=== PATIENT | male | born 1995 | race Caucasian/White ===

== ENCOUNTER 2016-05-01 02:06 | Emergency (ER) | payer OTHER ==
[~2016-05-01] VITALS: Ht 165.1 cm; Wt 68.0 kg
[~2016-05-01 02:06] MED LIST: ASPIR-LOW81 MG PO; COLCRYS0.6 MG PO; MOTRIN IB200 MG PO; NAPROSYN500 MG PO; NOHOMEMEDS
[2016-05-01] MEDS ORDERED: PERCOCET 5/31 TABLET PO (02:48)
[2016-05-01 02:54] VITALS: BP 142/82
== END 2016-05-01 02:55 | disposition home or self-care (01) ==
LOC: EME 02:06
DX: S20.212A Contusion of left front wall of thorax, initial encounter (principal); W18.30XA Fall on same level, unspecified, initial encounter; Y93.51 Activity, roller skating (inline) and skateboarding
CPT/HCPCS: 71101; 99281; 99283

== ENCOUNTER 2016-08-30 18:27 | Emergency (ER) | payer OTHER ==
[~2016-08-30] VITALS: Ht 165.1 cm; Wt 65.9 kg
[~2016-08-30 18:27] MED LIST changes: +PERCOCET 5/31 TABLET PO
[2016-08-30] MEDS ORDERED: NAPROSYN500 MG PO (20:15)
[2016-08-30] MEDS ORDERED: TRAMADOL HCL50 MG PO (20:20)
[2016-08-30 20:41] VITALS: BP 130/87
== END 2016-08-30 20:42 | disposition home or self-care (01) ==
LOC: EME 18:27
PROC: 2W3MX1Z Immobilization of Left Lower Extremity using Splint (ICD-10-PCS; principal; 2016-08-30)
DX: S83.92XA Sprain of unspecified site of left knee, initial encounter (principal); X50.0XXA Overexertion from strenuous movement or load, initial encounter; Y93.39 Activity, other involving climbing, rappelling and jumping off
CPT/HCPCS: 73564; 99281; 99283

== ENCOUNTER 2017-11-03 23:41 | Emergency (ER) | payer OTHER ==
[~2017-11-03] VITALS: Ht 165.1 cm; Wt 65.2 kg
[~2017-11-03 23:41] MED LIST changes: +TRAMADOL HCL50 MG PO
[2017-11-04 01:13] VITALS: BP 121/76
== END 2017-11-04 01:14 | disposition home or self-care (01) ==
LOC: EME 23:41
DX: B08.4 Enteroviral vesicular stomatitis with exanthem (principal); F17.200 Nicotine dependence, unspecified, uncomplicated
CPT/HCPCS: 87651 90; 99281; 99284; J1100